=== PATIENT | female | born 1980 | race Caucasian/White ===

== ENCOUNTER → 2018-12-16 | Outpatient (CLI) | payer OTHER ==
[2018-12-16 13:04] LABS: BASOPHILS ABSOLUTE AUTO 0.01 K/mm3 (0.00-0.23); BASOPHILS PERCENT AUTO 0 % (0-2); EOSINOPHILS PERCENT AUTO 0 % (0-6); Hematocrit 37.4 % (33.0-51.0); Hemoglobin 11.4 g/dL (11.5-16.0); IMMATURE GRAN ABSOLUTE AUTO 0.03 K/mm3 (0.00-0.10); IMMATURE GRAN PERCENT AUTO 0 % (0-1); LYMPHOCYTES ABSOLUTE AUTO 1.33 K/mm3 (0.84-5.20); LYMPHOCYTES PERCENT AUTO 19 % (21-46); MONOCYTES ABSOLUTE AUTO 0.53 K/mm3 (0.16-1.47); MONOCYTES PERCENT AUTO 8 % (4-13); Mean Corpuscular HGB 22.2 pg (26.0-34.0); Mean Corpuscular HGB Conc 30.5 g/dL (31.5-36.5); Mean Corpuscular Volume 73 fL (80-100); Mean Platelet Volume 10.8 fL (9.1-12.4); NEUTROPHILS ABSOLUTE AUTO 5.09 K/mm3 (1.96-9.15); NEUTROPHILS PERCENT AUTO 73 % (41-73); Platelet Count 230 K/mm3 (150-400); RDW Coefficient Variation 15.8 % (11.7-14.2); RDW Standard Deviation 40.7 fL (35.1-46.3); Red Blood Cell Count 5.14 M/mm3 (3.80-5.20); White Blood Cell Count 6.99 K/mm3 (4.00-11.30)
[2018-12-16 13:45] LABS: Albumin, Blood 4.3 g/dL (3.4-5.0); Albumin/Globulin Ratio 1.2 (0.8-1.8); Bilirubin, Total 0.3 mg/dL (0.1-1.0); Bun/Creatinine Ratio 8.9 (12.0-20.0); Calcium, Blood 9.2 mg/dL (8.5-10.1); Creatinine, Blood 1.23 mg/dL (0.40-1.00); Globulin, Blood 3.6 g/dL (2.2-4.0); Potassium, Blood 3.8 mmol/L (3.5-5.5); Total Protein, Blood 7.9 g/dL (6.4-8.2)
== END | disposition home or self-care (01) ==
LOC: LAB SHORT 12:47 → LAB EV 12:47
PROVIDERS: General Practice
DX: R11.10 Vomiting, unspecified (principal)
CPT/HCPCS: 80053; 83690; 85025

== ENCOUNTER 2019-02-21 09:10 | Day surgery (SDC) | payer OTHER ==
[~2019-02-21] VITALS: Ht 167.6 cm; Wt 98.4 kg
[2019-02-21] MEDS ORDERED: OLAN5 (09:43)
[2019-02-21] MEDS ORDERED: Zantac150 MG (09:44)
[2019-02-21] MEDS ORDERED: ONDA4ODT (09:44)
[2019-02-21] MEDS ORDERED: ESOM20 (09:45)
== END 2019-02-21 10:55 | disposition home or self-care (01) ==
LOC: ORSCSDS 09:10
PROVIDERS: Internal Medicine Gastroenterology
PROC: 0DB68ZX Excision of Stomach, Via Natural or Artificial Opening Endoscopic, Diagnostic (ICD-10-PCS; principal; 2019-02-21 10:30)
PROC: 0DB98ZX Excision of Duodenum, Via Natural or Artificial Opening Endoscopic, Diagnostic (ICD-10-PCS; principal; 2019-02-21 10:30)
DX: R11.2 Nausea with vomiting, unspecified (principal); K20.9 Esophagitis, unspecified; K44.9 Diaphragmatic hernia without obstruction or gangrene; K22.2 Esophageal obstruction; F31.9 Bipolar disorder, unspecified; F43.10 Post-traumatic stress disorder, unspecified; Z79.899 Other long term (current) drug therapy
CPT/HCPCS: 88305; 88342; J2704; J7120

== ENCOUNTER 2019-05-09 14:53 | Observation (INO) | payer OTHER ==
[~2019-05-09] VITALS: Ht 167.6 cm; Wt 99.6 kg
[~2019-05-09 14:53] MED LIST: ESOMEPRAZOLE MA40 MG PO; OLAN7.5 PO; ONDA4ODT SL; Zantac150 MG PO
[2019-05-09 15:06] LABS: BASOPHILS ABSOLUTE AUTO 0.01 K/mm3 (0.00-0.23); BASOPHILS PERCENT AUTO 0 % (0-2); EOSINOPHILS PERCENT AUTO 0 % (0-6); Hematocrit 29.5 % (33.0-51.0); IMMATURE GRAN ABSOLUTE AUTO 0.03 K/mm3 (0.00-0.10); IMMATURE GRAN PERCENT AUTO 0 % (0-1); LYMPHOCYTES ABSOLUTE AUTO 1.46 K/mm3 (0.84-5.20); LYMPHOCYTES PERCENT AUTO 15 % (21-46); MONOCYTES ABSOLUTE AUTO 0.66 K/mm3 (0.16-1.47); MONOCYTES PERCENT AUTO 7 % (4-13); Mean Corpuscular HGB 22.3 pg (26.0-34.0); Mean Corpuscular HGB Conc 30.5 g/dL (31.5-36.5); Mean Corpuscular Volume 73 fL (80-100); Mean Platelet Volume 10.7 fL (9.1-12.4); NEUTROPHILS ABSOLUTE AUTO 7.35 K/mm3 (1.96-9.15); NEUTROPHILS PERCENT AUTO 77 % (41-73); Platelet Count 203 K/mm3 (150-400); RDW Coefficient Variation 15.9 % (11.7-14.2); RDW Standard Deviation 41.9 fL (35.1-46.3); Red Blood Cell Count 4.03 M/mm3 (3.80-5.20); White Blood Cell Count 9.51 K/mm3 (4.00-11.30)
[2019-05-09 15:23] LABS: Source, Urine Clean Catch
[2019-05-09 15:27] LABS: Bilirubin, Urine Neg (Neg); Blood, Urine 3+ (Neg); Glucose Qualitative, Urine Neg (Neg); Ketones, Urine Neg (Neg); Leukocyte Esterase, Urine Neg (Neg); Nitrite, Urine Neg (Neg); Protein, Urine Neg (Neg); Specific Gravity, Urine 1.015 (1.003-1.022); Urobilinogen, Urine NORM (Normal)
[2019-05-09 15:29] LABS: Alanine Aminotransfer (ALT/SGP 26 U/L (12-78); Albumin, Blood 3.7 g/dL (3.4-5.0); Alk Phos 92 U/L (50-136); Anion Gap 8 mmol/L (6-16); Aspartate Aminotrans (AST/SGOT 19 U/L (12-37); Bilirubin, Total 0.3 mg/dL (0.1-1.0); Blood Urea Nitrogen 12 mg/dL (8-24); Bun/Creatinine Ratio 9.9 (12.0-20.0); CO2, Blood 24 mmol/L (21-32); Calcium, Blood 8.6 mg/dL (8.5-10.1); Chloride, Blood 110 mmol/L (98-108); Creatinine, Blood 1.21 mg/dL (0.40-1.00); Ethanol (Alcohol), Blood, Med <3 mg/dL; Globulin, Blood 3.6 g/dL (2.2-4.0); Glomerular Filtration Rate 53 (60-); Glucose, Blood 90 mg/dL (70-99); Potassium, Blood 3.9 mmol/L (3.5-5.5); Salicylate <1.7 mg/dL (2.8-20.0); Sodium, Blood 142 mmol/L (136-145); Total Protein, Blood 7.3 g/dL (6.4-8.2)
[2019-05-09 15:50] LABS: U Amphetamine Screen Not Detected; U Benzodiazapine Screen DETECTED; U Methamphetamine Screen Not Detected
[2019-05-09 15:51] LABS: U Barbituate Screen Not Detected; U Buprenorphine Screen Not Detected; U Cannabinoids Screen Not Detected; U Cocaine Screen Not Detected; U Methadone Screen Not Detected; U Opiates Screen Not Detected; U Oxycodone Screen Not Detected; U Phencyclidine Screen Not Detected; U Propoxyphene Screen Not Detected
[2019-05-09 16:01] LABS: Acetaminophen, Random <2.0 ug/mL (10.0-30.0)
[2019-05-09 16:04] LABS: Appearance, Urine Clear (Clear); Color, Urine Yellow (P-Yellow)
[2019-05-09 16:05] LABS: Bacteria Rare /hpf; Red Blood Cells, Urine 0-2 /hpf (0-2); Squamous Epithelial Cells Few /hpf (Few); White Blood Cells, Urine 0-2 /hpf (0-5)
[2019-05-09] MEDS ORDERED: ESOM20 PO (16:36)
--- NOTE | 2019-05-09 17:20 | NUR ---
1616-RECEIVED THIS PATIENT FROM ER. STILL SOMEWHAT SLEEPY BUT ALERT AND ORIENTED. DENIES PAIN AT THIS TIME. PT HAS STATED THAT SHE HAD NO INTENTIONS OF KILLING HERSELF. PT STATED THAT SHE HAD BEEN DEPRESSED AND TOOK SOME MEDICATIONS. PT IS CURRENTLY ON A 2 MD HOLD. 1700-READ TO PT HER CIVIL RIGHTS. EXPLAINED TO PT AND FAMILY ABOUT THE 2 MD HOLD. 1720-CALLED DR. ZAPATA FOR CLARIFICATION ORDERS. HE STATED HE WILL ORDER THE PSYCHIATRY CONSULT IN THE MORNING.
--- NOTE | 2019-05-09 17:30 | NUR ---
REITERATED TO THE FAMILY THAT WHEN PT IS ON A 2 MD HOLD VISITORS ARE A PRIVILEGE. 2 PEOPLE ALLOWED TO BE IN THE ROOM. EXPLAINED TO PT THAT SHE CANNOT HAVE HER CELLPHONE IN THE ROOM. SHE'S ALLOWED TO USE IT BUT WITH SUPERVISION.
--- NOTE | 2019-05-09 18:25 | NUR ---
SHIFT SUMMARY: PT IS ALERT AND ORIENTED. SLOWLY WAKING UP A LITTLE MORE. PT WAS ABLE TO TOLERATE WATER. PT STATED SHE'S READY TO EAT DINNER. PT DENIES SUICIDAL IDEATION AND SUICIDE. STILL SINUS TACHY AT TIMES BUT MOSTLY NSR.
--- NOTE | 2019-05-09 19:30 | NUR ---
ASSUME CARE:EPORT RECIEVED FROM OFF GOING RN SHIMON. MONITOR INTACT SHOWING SINUS TACH. HEART RATE 90'S-100'S. VISITS WITH VISITORS. AND TALKING ON CELL PHONE. LUNG SOUNDS CLEAR RESPIRATIONS REGULAR AND EASY SPO2 100% ON ROOM AIR/ ABDOMEN SOFT WITH BOWEL SOUNDS FOUR QUADS. VOIDS BARRY URINE GAIT STEADY WITH MINIMAL SSTANDBY ASSIST. DENIES DIZZINES OR UNSTEADINESS. SKIN WARM DRY INTACT. NO EDEMA NOTED PEDAL PULSES PRESENT/ CONTINUE TO MONITOR AND REPORT CHANGE IN PATIENT CONDITION. CELL PHONE IN LOCKED MED BOX IN ROOM EXPLAINED RATIONALE COOPERATIVE TO CARES
[2019-05-10 04:19] LABS: BASOPHILS PERCENT AUTO 0 % (0-2); EOSINOPHILS PERCENT AUTO 0 % (0-6); Hemoglobin 7.7 g/dL (11.5-16.0); IMMATURE GRAN ABSOLUTE AUTO 0.03 K/mm3 (0.00-0.10); IMMATURE GRAN PERCENT AUTO 1 % (0-1); LYMPHOCYTES ABSOLUTE AUTO 2.19 K/mm3 (0.84-5.20); LYMPHOCYTES PERCENT AUTO 34 % (21-46); MONOCYTES PERCENT AUTO 8 % (4-13); Mean Corpuscular HGB 21.6 pg (26.0-34.0); Mean Corpuscular HGB Conc 29.6 g/dL (31.5-36.5); Mean Corpuscular Volume 73 fL (80-100); Mean Platelet Volume 10.8 fL (9.1-12.4); NEUTROPHILS ABSOLUTE AUTO 3.74 K/mm3 (1.96-9.15); NEUTROPHILS PERCENT AUTO 58 % (41-73); Platelet Count 177 K/mm3 (150-400); RDW Coefficient Variation 15.9 % (11.7-14.2); RDW Standard Deviation 41.9 fL (35.1-46.3); Red Blood Cell Count 3.56 M/mm3 (3.80-5.20); White Blood Cell Count 6.46 K/mm3 (4.00-11.30)
[2019-05-10 04:39] LABS: Percent Saturation 7.4 % (15.0-50.0)
[2019-05-10 04:42] LABS: Bun/Creatinine Ratio 8.8 (12.0-20.0); Calcium, Blood 7.7 mg/dL (8.5-10.1); Creatinine, Blood 1.13 mg/dL (0.40-1.00); Potassium, Blood 3.7 mmol/L (3.5-5.5)
--- NOTE | 2019-05-10 06:26 | NUR ---
SHIFT SUMMARY : RESTS QUIETLY WHEN UNDISTURBED. MONITOR INTACT SHOWING SINUR RHYTHM/SINUS TACH. HEARR RATE 90'S-100'S . LUNG SOUNDS CLEAR RESPIRATIONS REGULAR AND EASY ON ROOM AIR.. SPO2 SPOT CHECKS 96-100%. ABDOMEN SOFT WITH BOWEL SOUNDS FOUR QUADS. VOIDS BARRY URINE GAIT STADY TO TOILET WITH MINIMAL STANDBY ASSIST. COOPERATIVE TO CARES. CONTINUE TO MONITOR AND REPORT CHANGE IN PATIENT CONDITION.
--- NOTE | 2019-05-10 07:53 | NUR ---
ASSUMED CARE PT AWAKENS TO VERBAL STIMULI. PT. ALERT AND ORIENTED TO LOCATION AND EVENT THIS AM. PT DENIES PAIN. DENIES ANY SI. PT. RESTING COMFORTABLY IN BED. LS CLEAR T/O. PT DENIES N/V THIS AM; REPORTS ONCE EPISODE OF EMESIS LAST NIGHT. PT. VSS THIS AM. CALL LIGHT IN REACH
--- NOTE | 2019-05-10 10:59 | NUR ---
MED WITH TYLENOL PER DR. JAIME FOR HEADACHE.
--- NOTE | 2019-05-10 18:17 | NUR ---
SHIFT SUMMARY PT. REMAINS ALERT AND ORIENTED T/O DAY. UP IN ROOM FREQUENTLY TO VOID T/O DAY WITH ONLY STAND BY ASSIST WITH CORDS AND LINES. PT. VSS T/O SHIFT. CURRENTLY MED STATUS. PLANS TO RESTART HOME MEDS TONIGHT WITH POSSIBLE D/C TOMORROW. PT. MED ONCE FOR PAIN FOR HEADACHE, RELIEF WITH TYLENOL. CAROLN. DENIES SI T/O DAY. REPORT TO ONCOMING RN.
--- NOTE | 2019-05-10 21:11 | NUR ---
2030 PT ADMITTED TO ROOM 344 PER WHEELCHAIR FOR ICU (TRANSFER), PERSONAL PHONE AND EYE WASH LENS LOCKED UP MEDICATION DRAWER OUTSIDE OF ROOM; BATHROOM ROOM DOOR LOCKED, SHORT CALL LIGHT AT SIDE, DENIES SUICIDAL IDEATIONS.
--- NOTE | 2019-05-11 05:09 | NUR ---
SHIFT SUMMARY: 39 Y/O FEMALE RESTED COMFORTABLY ALL SHIFT, THIS NURSE SAT AT DESK WITH DIRECT EYE SITE INTO ROOM, PT IS ON CAMERA FOR SAFETY, NO SUICIDAL IDEATIONS NOTED, DENIES PAIN OR NAUSEA, BED LOW POSITION, CALL LIGHT AT SIDE.
[2019-05-11] MEDS ORDERED: IRON150C PO (12:05)
--- NOTE | 2019-05-11 14:21 | NUR ---
SUMMARY/DISCHARGE PT DISCHARGED TO HOME AFTER DR DEVRIES CLEARED HER, PT STATES SHE WANTED TO MAKE HER OWN FOLLOW UP APPOINTMENTS, INFORMATION ABOUT [facility] GIVEN TO THE PT WELL, PT HAD DENIED ANY SUICIDAL IDEATION T/O THE DAY, PT DECLINED A WHEELCHAIR AND WAS ABLE TO AMBULATE SAFELY TO THE ELEVATOR WITH HER MOTHER
== END 2019-05-11 14:10 | disposition home or self-care (01) ==
LOC: ER 14:53 → MEDS 14:54 → ICUW 14:54 → EDBEDREQSVC 15:52 → EDBEDREQTM 15:52 → EDBEDREQ 15:52 → ICUW 16:08 → MEDS 05-10 20:29 → ENPENDDIS 05-11 10:35 → MEDS 05-11 14:10
PROVIDERS: Emergency Medicine; Internal Medicine; ADMIT Internal Medicine
DX: T43.592A Poisoning by other antipsychotics and neuroleptics, intentional self-harm, initial encounter (principal); F31.9 Bipolar disorder, unspecified; D50.9 Iron deficiency anemia, unspecified; G43.909 Migraine, unspecified, not intractable, without status migrainosus; Z88.5 Allergy status to narcotic agent; Z79.899 Other long term (current) drug therapy
CPT/HCPCS: 80048; 80053; 81001; 81025; 82728; 83540; 83550; 84443; 85025; 93005; 93010; 96360; 96361; 96372; 96374; 99285-25; C1751; G0378; G0480; J1650; J2405; J7030

== ENCOUNTER 2019-05-15 03:37 | Emergency (ER) | payer OTHER ==
[~2019-05-15] VITALS: Ht 167.6 cm; Wt 99.8 kg
[~2019-05-15 03:37] MED LIST changes: +ESOM20 PO; +IRON150C PO
[2019-05-15 04:57] LABS: BASOPHILS PERCENT AUTO 0 % (0-2); EOSINOPHILS PERCENT AUTO 0 % (0-6); Hematocrit 31.3 % (33.0-51.0); Hemoglobin 9.1 g/dL (11.5-16.0); IMMATURE GRAN ABSOLUTE AUTO 0.02 K/mm3 (0.00-0.10); IMMATURE GRAN PERCENT AUTO 0 % (0-1); LYMPHOCYTES ABSOLUTE AUTO 1.76 K/mm3 (0.84-5.20); LYMPHOCYTES PERCENT AUTO 31 % (21-46); MONOCYTES ABSOLUTE AUTO 0.55 K/mm3 (0.16-1.47); MONOCYTES PERCENT AUTO 10 % (4-13); Mean Corpuscular HGB Conc 29.1 g/dL (31.5-36.5); Mean Platelet Volume 10.9 fL (9.1-12.4); NEUTROPHILS PERCENT AUTO 59 % (41-73); Platelet Count 193 K/mm3 (150-400); RDW Coefficient Variation 16.2 % (11.7-14.2); RDW Standard Deviation 43.8 fL (35.1-46.3); Red Blood Cell Count 4.14 M/mm3 (3.80-5.20); White Blood Cell Count 5.63 K/mm3 (4.00-11.30)
[2019-05-15 04:58] LABS: Mean Corpuscular Volume 76 fL (80-100)
[2019-05-15 05:16] LABS: Albumin, Blood 3.7 g/dL (3.4-5.0); Bilirubin, Total 0.5 mg/dL (0.1-1.0); Bun/Creatinine Ratio 10.3 (12.0-20.0); Calcium, Blood 9.4 mg/dL (8.5-10.1); Creatinine, Blood 1.16 mg/dL (0.40-1.00); Globulin, Blood 3.8 g/dL (2.2-4.0); Potassium, Blood 3.8 mmol/L (3.5-5.5); Total Protein, Blood 7.5 g/dL (6.4-8.2)
[2019-05-15 06:10] LABS: Source, Urine Clean Catch
[2019-05-15 06:29] LABS: Bilirubin, Urine Neg (Neg); Blood, Urine Neg (Neg); Glucose Qualitative, Urine Neg (Neg); Ketones, Urine Neg (Neg); Leukocyte Esterase, Urine Neg (Neg); Nitrite, Urine Neg (Neg); Protein, Urine Neg (Neg); Urobilinogen, Urine NORM (Normal)
[2019-05-15 06:31] LABS: Appearance, Urine Clear (Clear); Color, Urine Yellow (P-Yellow)
== END 2019-05-15 09:30 | disposition short-term general hospital (02) ==
LOC: ER 03:37
PROVIDERS: Emergency Medicine
DX: K80.70 Calculus of gallbladder and bile duct without cholecystitis without obstruction (principal); G43.909 Migraine, unspecified, not intractable, without status migrainosus; Z79.899 Other long term (current) drug therapy; Z88.5 Allergy status to narcotic agent
CPT/HCPCS: 36415; 76705; 80053; 81003; 83690; 84703; 85025; 96361; 96365; 96375; 96376; 99285-25; J0696; J2405; J3010; J7030

== ENCOUNTER → 2021-11-21 | Outpatient (CLI) | payer OTHER ==
[2021-11-25 15:09] LABS: HPV 16 Negative (Negative); HPV 18 Negative (Negative); HPV OTHER HR TYPES Negative (Negative)
== END | disposition home or self-care (01) ==
LOC: LAB SHORT 16:47
PROVIDERS: Family Medicine
DX: Z01.419 Encounter for gynecological examination (general) (routine) without abnormal findings (principal)
CPT/HCPCS: 87624; G0123

== ENCOUNTER 2023-07-20 12:00 | Day surgery (SDC) | payer OTHER ==
[~2023-07-20] VITALS: Ht 167.6 cm; Wt 98.5 kg
[2023-07-20] MEDS ORDERED: OMEP20ER PO (12:31)
[2023-07-20] MEDS ORDERED: AMIT25 PO (12:35)
[2023-07-20 13:53] VITALS: BP 112/77
--- NOTE | 2023-07-20 13:54 | NUR ---
07/20/23 1354 Jennifer Hwang IV DC'D, CATH INTACT. PT TOLERATED WELL. GAUZE/COBAN IN PLACE
== END 2023-07-20 13:54 | disposition home or self-care (01) ==
LOC: ORSCSDS 12:00
PROVIDERS: Internal Medicine Gastroenterology
PROC: 0DBL8ZX Excision of Transverse Colon, Via Natural or Artificial Opening Endoscopic, Diagnostic (ICD-10-PCS; principal; 2023-07-20 13:30)
DX: K59.00 Constipation, unspecified (principal); D12.3 Benign neoplasm of transverse colon; F31.9 Bipolar disorder, unspecified; G47.33 Obstructive sleep apnea (adult) (pediatric); N18.30 Chronic kidney disease, stage 3 unspecified; F43.10 Post-traumatic stress disorder, unspecified; E03.9 Hypothyroidism, unspecified; Z68.35 Body mass index [BMI] 35.0-35.9, adult; E66.9 Obesity, unspecified; Z79.899 Other long term (current) drug therapy
CPT/HCPCS: 88305; J2704